=== PATIENT | female | born 1945 | race Caucasian/White ===

== ENCOUNTER → 2022-09-01 | Outpatient (CLI) | payer MEDICARE ==
--- NOTE | 2022-09-01 13:00 | CA ---
Exercise Stress Test Report Name: Lisset Gordon Exam Date: 09/01/2022 11:07 Exam Location: [facility] Ht (in): 60 Wt (lb): 125 BSA: 1.53 Ordering Phys: Benji Lynn MD Referring Phys: Benji Lynn MD Technologist: Mike Mena Age: 77 Gender: F : 1945 Procedure CPT: Indications: r06.02 ICD-10 Codes: Patient History: Medications: ATORVASTATIN Meds past 24 hrs: Pretest Chest Pain: STRESS TEST Maverick Protocol Exercise Duration (min:sec): 01:[address] Depressions (mm): Angina Score: Bella Score: Resting HR (bpm): 80 Peak HR (bpm): 144 Resting BP (mmHg): 147 / 78 Peak BP (mmHg): 193 / 86 MPHR: 141 Target HR: 120 % MPHR: 102 METS: 4.0 Total Dose: Peak Dose: Atropine: Double Product: 89568 BP Response: Stress Termination: DYSPNEA UNABLE TO CONTINUE,TARGET HR REACHED/MAX EXERTION Stress Symptoms: DIFFICULTY IN BREATHING Stress Summary: ECG ANALYSIS Resting ECG: Normal sinus rhythm normal axis normal intervals Stress ECG: Patient exercised on Maverick protocol for a total of 1 minute and 40 seconds achieving to metastases 100% of predicted maximal heart rate without chest pain or diagnostic ST segment depression CONCLUSIONS Extremely poor exercise tolerance No evidence of ST segment depression Inability to exercise for more than 2 minutes is a poor prognostic indicator Dr. Jared Chi MD (Electronically Signed) Final Date: 01 September 2022 12:59
== END | disposition home or self-care (01) ==
LOC: RADNMMAIN 10:30
PROVIDERS: ATTEND Family Medicine
DX: I10 Essential (primary) hypertension (principal); R06.02 Shortness of breath; R07.89 Other chest pain
CPT/HCPCS: 93017

== ENCOUNTER 2023-01-26 06:55 | Day surgery (SDC) | payer MEDICARE ==
[~2023-01-26 06:55] MED LIST: LACTATED RINGERS 1,000 ML IV SCH
[2023-01-26 07:28] VITALS: TEMP 96.9
[2023-01-26] MEDS ORDERED: LIDOCAINE 2% INJ 20 MG/ML (2 ML VIAL) ONE (08:16)
[2023-01-26] MEDS ORDERED: PROPOFOL 10 MG/ML 20 ML VIAL IV ONE (08:16)
--- NOTE | 2023-01-26 08:39 | P.OP ---
Date of Procedure: 01/26/23 Preoperative Diagnosis: GI bleed Postoperative Diagnosis: Internal hemorrhoids Procedure(s) Performed: Colonoscopy Anesthesia: MAC Surgeon: Edwin Carranza Pathology: none sent Condition: stable Disposition: PACU Description of Procedure: The patient's placed on the endoscopy table in the lateral position. She received IV sedation. Digital rectal exam was performed. This revealed internal hemorrhoids. The flexible colonoscope was then placed patient anus and passed throughout the entire colon. The ileocecal valve was visually is. The appendiceal orifice was seen. The flexible colonoscope was then withdrawn. The cecum appeared all. The ascending colon appeared normal. Transverse colon was normal. Descending colon was normal. Sigmoid colon appeared normal. Scope summer back the rectum and this appeared normal. Scope withdrawn through the anus and internal hemorrhoids are noted. There was no evidence of any active GI bleed. Presumed patient may have had bleeding from internal hemorrhoids.
--- NOTE | 2023-01-26 08:41 | P.GSHP ---
History of Present Illness H&P Date: 01/26/23 Chief Complaint: GI bleed Is a 77-year-old female who presents today for colonoscopy. Patient is evidence of GI bleed.. Her stool is fecal occult blood positive. Patient denies any active bleeding. Past Medical History Past Medical History: Hyperlipidemia History of Any Multi-Drug Resistant Organisms: None Reported Past Surgical History: Section, Cholecystectomy, Tonsillectomy Past Anesthesia/Blood Transfusion Reactions: No Reported Reaction Additional Past Anesthesia/Blood Transfusion Reaction / Comment(s): slow to wake up Smoking Status: Never smoker Medications and Allergies Home Medications Medication Instructions Recorded Confirmed Type Atorvastatin Calcium 40 mg PO DAILY 01/24/23 01/24/23 History Ergocalciferol [Vitamin D2 (1250 50,000 unit PO Q30D 01/24/23 01/24/23 History Mcg = 41906 Iu)] Allergies Allergy/AdvReac Type Severity Reaction Status Date / Time No Known Allergies Allergy Verified 01/24/23 11:25 Surgical - Exam Vital Signs Temp Pulse Resp BP Pulse Ox 96.9 F L 70 18 199/83 98 01/26/23 07:23 01/26/23 07:23 01/26/23 07:23 01/26/23 07:23 01/26/23 07:23 - General well developed, well nourished, no distress - Eyes PERRL - ENT normal pinna - Neck no masses - Respiratory normal expansion - Cardiovascular Rhythm: regular - Abdomen Abdomen: soft, non tender Assessment and Plan Assessment: History of GI bleed. We'll perform colonoscopy.
[2023-01-26 08:57] VITALS: BP 125/71; PULSE 58; RESP 16
== END 2023-01-26 09:53 | disposition home or self-care (01) ==
LOC: ORWHC2ENDO 06:55
PROVIDERS: ATTEND Surgery
DX: K64.8 Other hemorrhoids (principal); E78.5 Hyperlipidemia, unspecified; Z90.49 Acquired absence of other specified parts of digestive tract; Z79.899 Other long term (current) drug therapy
CPT/HCPCS: 45378; J2704; J2001

== ENCOUNTER → 2023-09-13 | Outpatient (CLI) | payer MEDICARE ==
[2023-09-13 15:43] LABS: African American GFR (CKD) 71 (>60 ml/min/1.73 sqM); Blood Urea Nitrogen 15 mg/dL (7-17); Non-African American GFR(CKD) 61 (>60 ml/min/1.73 sqM)
--- NOTE | 2023-09-21 00:35 | CT ---
EXAMINATION TYPE: CT angio chest CT DLP: 137.3 mGycm, Automated exposure control for dose reduction was used. DATE OF EXAM: 09/13/2023 4:03 PM COMPARISON: None. CLINICAL INDICATION:Female, 78 years old with history of R79.89 Elevated D-Dimer; SOB x 1 year, recen t high dimer value. TECHNIQUE/CONTRAST: CTA scan of the thorax is performed with IV Contrast, patient injected with 80 cc mL of Isovue 370, M IP images are created and reviewed these are created on a separate workstation.. FINDINGS: There is adequate contrast bolus and timing. PULMONARY ARTERIES: There is no evidence for a filling defect within the pulmonary vasculature to sug gest acute pulmonary embolism. Pulmonary trunk is normal in size. Trunk measures 2.3 CM. LOWER NECK: No significant findings. MEDIASTINUM: No gross evidence of adenopathy. HEART: Mild cardiomegaly. Mild coronary artery calcification. No appreciable pericardial effusion. AORTA: Atherosclerotic calcifications are present throughout the aorta and branches. Mild in degree. No aortic aneurysm. The ascending aorta is 3.3 cm, descending 2.3 cm. SOFT TISSUES/LYMPH NODES: Unremarkable soft tissues. No axillary adenopathy. LUNGS/ PLEURA: There is scarring throughout both lungs, including biapical, plus peripheral subpleura l fibrosis which is greatest at the lung bases. There is suggestion of some honeycombing towards the lung bases. No sizable nodule, mass, or consolidation is seen superimposed on this background. No ple ural effusion or pneumothorax. AIRWAY: Central airways are patent. MUSCULOSKELETAL: Bones are generally osteopenic. No acute osseous abnormality. Moderate disc degenera tion changes are present throughout the included thoracolumbar spine. There is a rather prominent pec tus excavatum deformity with posterior tilting on the left of about 4 mm versus the right. This defor mity appears to partially compress the right heart. UPPER ABDOMEN: Partially seen cholecystectomy clips. Additional aortic calcification. IMPRESSION: 1. No evidence of pulmonary embolism. 2. No other acute chest process demonstrated. 3. Other chronic and likely incidental findings, as described above.
== END | disposition home or self-care (01) ==
LOC: RADCTMAIN 14:36
PROVIDERS: ATTEND Family Medicine
DX: R79.89 Other specified abnormal findings of blood chemistry (principal); R06.02 Shortness of breath
CPT/HCPCS: 82565; 84520; 71275; 36415; Q9967

== ENCOUNTER → 2023-10-03 | Outpatient (CLI) | payer MEDICARE ==
[2023-10-03 12:43] LABS: African American GFR (CKD) >90 (>60 ml/min/1.73 sqM); Blood Urea Nitrogen 14 mg/dL (7-17); Non-African American GFR(CKD) 84 (>60 ml/min/1.73 sqM)
--- NOTE | 2023-10-03 15:56 | CT ---
EXAMINATION TYPE: CT abdomen pelvis w con DATE OF EXAM: 10/03/2023 COMPARISON: NONE HISTORY: 78-year-old female R10.9, generalized abdominal and pelvic pain TECHNIQUE: Contiguous axial scanning of the abdomen and pelvis following administration of 100 ml Iso kinsey 300 IV contrast. Delayed images through the kidneys and coronal/sagittal reconstructions perform ed. CT DLP: 359.2 mGycm Automated exposure control for dose reduction was used. FINDINGS: Pectus excavatum deformity with mass effect on the heart. Possible UIP pattern of lung inju ry at the lung bases with honeycombing. Pulmonary medicine referral if no established diagnosis. No focal liver lesion. Bile duct mildly dilated up to 7 mm with normal distal tapering. Additional mild prominence of the ma in pancreatic duct up to 3 mm. Portal venous system is patent. Cholecystectomy clips. Adrenal glands, kidneys, spleen, and pancreas otherwise show no gross abnormal. Moderate atherosclerotic calcifications infrarenal abdominal aorta. No dilated small bowel, free fluid, or free air. No mesenteric or retroperitoneal lymphadenopathy. Oral contrast progressed to the proximal sigmoid colon. There is mild stool in the distal colon. No p ericolic inflammatory change. Mild circumferential bladder wall thickening. Small foci of intraluminal bladder air are noted. Uterus anteverted. Prominent parauterine varices especially on the left with distention of the left g onadal vein. Right-sided pelvic phlebolith. No abnormal fluid collection in the pelvis or pelvic lymp hadenopathy. Bones: Mild degenerative change at the hips. Facet arthropathy mid to lower lumbar spine with grade 1 anterolisthesis L3-L4 and L4-L5. IMPRESSION: 1. SMALL FOCI OF AIR WITHIN THE BLADDER LUMEN. MILD CIRCUMFERENTIAL BLADDER WALL THICKENING. CORRELAT E FOR ANY RECENT INSTRUMENTATION OR UNDERLYING INFECTION. 2. PROMINENT LEFT PERIUTERINE VARICES are nonspecific but can be seen in the setting of pelvic conges tion syndrome. 3. Possible UIP pattern of lung injury at the lung bases. If no established diagnosis, recommend pulm onary medicine referral.
== END | disposition home or self-care (01) ==
LOC: RADCTMAIN 11:54
PROVIDERS: ATTEND Family Medicine
DX: N32.89 Other specified disorders of bladder (principal); I86.2 Pelvic varices
CPT/HCPCS: 82565; 84520; 74177; 36415; Q9967

== ENCOUNTER → 2023-10-30 | Outpatient (CLI) | payer MEDICARE ==
--- NOTE | 2023-11-03 07:26 | CT ---
EXAMINATION TYPE: CT chest wo con DATE OF EXAM: 10/30/2023 COMPARISON: 09/13/2023 HISTORY: Interstital pulmonary disease CT DLP: 317.9 mGycm Automated exposure control for dose reduction was used. Contrast: None Technique: Axial images 1 mm thick sections. Reconstructed images in the coronal plane FINDINGS: There is a 1.0 cm nodular density with irregular margins in the lateral left mid lung. This was prese nt previously and is stable. Peripheral pulmonary fibrosis is evident, greater on the left. Some mild pleural thickening is presen t in scattered areas. Findings are stable over the interval. No suspicious consolidations. The ascending thoracic aorta at the main pulmonary artery is 5 cm. Main pulmonary artery the bifurcation is 2.4 cm. Coronary artery calcification is present. No suspicious enlarged lymphadenopathy is evident. Portion of the thyroid visualized is normal. Upper abdomen is un remarkable. There is been a prior cholecystectomy. IMPRESSION: 1. STABLE APPEARING PULMONARY FIBROSIS
== END | disposition home or self-care (01) ==
LOC: RADCTMAIN 15:38
PROVIDERS: ATTEND Internal Medicine Critical Care Medicine
DX: J84.10 Pulmonary fibrosis, unspecified (principal); J84.9 Interstitial pulmonary disease, unspecified
CPT/HCPCS: 71250

== ENCOUNTER → 2023-12-20 | Outpatient (CLI) | payer MEDICARE ==
--- NOTE | 2023-12-20 21:30 | FL ---
EXAMINATION TYPE: FL barium swallow DATE OF EXAM: 12/20/2023 COMPARISON: NONE HISTORY: Dysphagia dry mouth sore throat TECHNIQUE: Double air contrast FINDINGS: Number of images: 197 No intraluminal or extramural defects are evident. There is some mild presbyesophagus with tertiary c ontractions distal esophagus. No aspiration was evident. No reflux was evident. The horizontal drinki ng position there is incomplete stripping of the esophageal bolus. IMPRESSION: 1. Mild Presbyesophagus. 2. Incomplete stripping of esophageal bolus in the horizontal drinking position
== END | disposition home or self-care (01) ==
LOC: RADUSWWP 08:54
PROVIDERS: ATTEND Otolaryngology
DX: K22.89 Other specified disease of esophagus (principal)
CPT/HCPCS: 74220

== ENCOUNTER 2024-11-14 12:30 | Inpatient (IN) | payer MEDICARE ==
[2024-11-14] MEDS: IPRATROPIUM-ALBUTEROL 3 ML NEB INHALATION STA (13:28)
[2024-11-14 13:37] LABS: Basophils % (A) 0 %; Eosinophils # (A) 0.1 k/uL (0-0.7); Eosinophils % (A) 1 %; HGB 14.2 gm/dL (11.4-16.0); Lymphocytes % (A) 15 %; MCH 30.1 pg (25.0-35.0); MCHC 32.2 g/dL (31.0-37.0); MCV 93.4 fL (80.0-100.0); Mean Platelet Volume 7.7; Monocytes # (A) 0.3 k/uL (0-1.0); Monocytes % (A) 5 %; Neutrophils # (A) 5.3 k/uL (1.3-7.7); Neutrophils % (A) 77 %; Platelet Count 283 k/uL (150-450); RBC 4.72 m/uL (3.80-5.40); RDW 13.3 % (11.5-15.5); WBC 6.9 k/uL (3.8-10.6)
--- NOTE | 2024-11-14 13:42 | XR ---
EXAMINATION TYPE: XR chest 2V DATE OF EXAM: 11/14/2024 1:35 PM COMPARISON: CT 10/29/2024 CLINICAL INDICATION: Female, 79 years old with history of difficulty breathing, TECHNIQUE: XR chest 2V view(s) obtained. FINDINGS: The heart size is normal. The pulmonary vasculature is normal. Left lung increased diffuse infiltrates. This correlates with the patient's reported pulmonary fibros is from high-resolution CT chest 10/29/2024. Correlate for atypical pneumonia. Consider pulmonary kwabena a. IMPRESSION: 1. Diffuse increased lung markings left lung can be compatible with patient's known pulmonary fibrosi s.. Correlate for atypical pneumonia or pulmonary edema. [facility], , 11/14/2024 1:40 PM
[2024-11-14 14:07] LABS: Partial Thromboplastin Time 22.9 sec (22.0-30.0); Prothrombin Time 10.7 sec (10.0-12.5)
[2024-11-14 14:11] LABS: ALT 15 U/L (4-34); AST 29 U/L (14-36); African American GFR (CKD) >90 (>60 ml/min/1.73 sqM); Albumin 4.3 g/dL (3.5-5.0); Alkaline Phosphatase 87 U/L (38-126); Anion Gap 11 mmol/L; Blood Urea Nitrogen 10 mg/dL (7-17); Calcium 9.3 mg/dL (8.4-10.2); Carbon Dioxide 21 mmol/L (22-30); Chloride 103 mmol/L (98-107); Glucose 108 mg/dL (74-99); Non-African American GFR(CKD) 84 (>60 ml/min/1.73 sqM); Potassium 4.3 mmol/L (3.5-5.1); Sodium 135 mmol/L (137-145); Total Protein 7.7 g/dL (6.3-8.2)
[2024-11-14 14:16] LABS: Influenza A Not Detected (Not Detectd); Influenza B Not Detected (Not Detectd); RSV Not Detected (Not Detectd)
[2024-11-14 14:18] LABS: NT-Pro-B-Type Natriuretic Pept 703 pg/mL
[2024-11-14] MEDS ORDERED: NALOXONE 0.4 MG/ML 1 ML VIAL IV PRN (14:46)
--- NOTE | 2024-11-14 14:46 | ED ---
SOB HPI - General Chief Complaint: Shortness of Breath Stated Complaint: SOB Time Seen by Provider: 11/14/24 12:35 Source: patient, EMS Mode of arrival: EMS Limitations: no limitations - History of Present Illness Initial Comments: 79-year-old female with past medical history of pulmonary fibrosis who presents emergency department reporting shortness of breath. Patient states that for the past week she has had worsening exertional shortness of breath. She does have a history of pulmonary fibrosis. Recently saw Dr. Coe and had a CT of her chest performed. She is to take DuoNeb breathing treatments however she was told to stop these as they do not help her. She does not take any steroids. Denies having any fevers, chills or cough. No chest pain. No history of DVT or PE. No nausea or vomiting. EMS did start an IV and gave her 700 cc of normal saline. No history of heart failure. No other alleviating, precipitating or modifying factors - Related Data Home Medications Medication Instructions Recorded Confirmed Atorvastatin Calcium 40 mg PO HS 01/24/23 11/14/24 Multivitamins, Thera [Multivitamin 1 tab PO DAILY 11/14/24 11/14/24 (formulary)] Allergies Allergy/AdvReac Type Severity Reaction Status Date / Time No Known Allergies Allergy Verified 11/14/24 15:23 Review of Systems ROS Statement: Those systems with pertinent positive or pertinent negative responses have been documented in the HPI. ROS Other: All systems not noted in ROS Statement are negative. Past Medical History Past Medical History: Hyperlipidemia Additional Past Medical History / Comment(s): pulmonary fibrosis History of Any Multi-Drug Resistant Organisms: None Reported Past Surgical History: Section, Cholecystectomy, Tonsillectomy Past Anesthesia/Blood Transfusion Reactions: No Reported Reaction Additional Past Anesthesia/Blood Transfusion Reaction / Comment(s): slow to wake up Past Psychological History: No Psychological Hx Reported Smoking Status: Never smoker Past Alcohol Use History: None Reported Past Drug Use History: None Reported General Exam Limitations: no limitations General appearance: alert, in no apparent distress Head exam: Present: atraumatic, normocephalic, normal inspection Eye exam: Present: normal appearance, PERRL, EOMI. Absent: scleral icterus, conjunctival injection, periorbital swelling ENT exam: Present: normal exam, mucous membranes moist Neck exam: Present: normal inspection. Absent: tenderness, meningismus, lymphadenopathy Respiratory exam: Present: wheezes, decreased breath sounds, other (Tachypnea). Absent: respiratory distress, rales, rhonchi, stridor Cardiovascular Exam: Present: regular rate, normal rhythm, normal heart sounds. Absent: systolic murmur, diastolic murmur, rubs, gallop, clicks GI/Abdominal exam: Present: soft, normal bowel sounds. Absent: distended, tenderness, guarding, rebound, rigid Extremities exam: Present: normal inspection, full ROM, normal capillary refill. Absent: tenderness, pedal edema, joint swelling, calf tenderness Back exam: Present: normal inspection Neurological exam: Present: alert, oriented X3, CN II-XII intact Psychiatric exam: Present: normal affect, normal mood Skin exam: Present: warm, dry, intact, normal color. Absent: rash Course Vital Signs 11/14/24 11/14/24 11/14/24 12:34 13:31 13:44 Temperature 97.8 F Pulse Rate 74 90 89 Respiratory 34 H Rate Blood Pressure 168/87 O2 Sat by Pulse 100 Oximetry 11/14/24 11/14/24 11/14/24 15:04 15:49 15:58 Temperature Pulse Rate 74 96 96 Respiratory 20 Rate Blood Pressure 161/81 O2 Sat by Pulse 99 Oximetry 11/14/24 11/14/24 11/14/24 17:42 20:03 20:17 Temperature 98.4 F Pulse Rate 88 96 98 Respiratory 26 H Rate Blood Pressure 155/69 O2 Sat by Pulse 100 Oximetry 11/14/24 11/14/24 11/14/24 21:39 21:44 22:00 Temperature 98.6 F Pulse Rate 101 H 91 Respiratory 22 20 Rate Blood Pressure 180/81 155/69 O2 Sat by Pulse 99 99 Oximetry 11/15/24 11/15/24 11/15/24 00:00 05:00 06:40 Temperature Pulse Rate 86 91 79 Respiratory 20 20 20 Rate Blood Pressure 134/64 172/84 178/80 O2 Sat by Pulse 99 100 100 Oximetry 11/15/24 11/15/24 11/15/24 07:30 09:07 09:17 Temperature 97.7 F Pulse Rate 87 92 90 Respiratory 20 Rate Blood Pressure 164/78 O2 Sat by Pulse 99 Oximetry 11/15/24 11/15/24 11/15/24 09:35 10:43 12:05 Temperature Pulse Rate 94 100 96 Respiratory 18 18 Rate Blood Pressure 171/79 O2 Sat by Pulse 100 100 Oximetry 11/15/24 11/15/24 11/15/24 12:14 13:00 15:00 Temperature Pulse Rate 92 101 H 100 Respiratory 18 18 Rate Blood Pressure 161/74 162/81 O2 Sat by Pulse 100 99 Oximetry Medical Decision Making - Medical Decision Making Was pt. sent in by a medical professional or institution (, PA, DISTRIBUTION CENTER ASSISTANT, urgent care, hospital, or assisted...) When possible be specific @ -No Did you speak to anyone other than the patient for history (EMS, parent, family, police, friend...)? What history was obtained from this source @ -Spoke with the patient's friend for history Did you review nursing and triage notes (agree or disagree)? Why? @ -I reviewed and agree with nursing and triage notes Were old charts reviewed (outside hosp., previous admission, EMS record, old EKG, old radiological studies, urgent care reports/EKG's, assisted records)? Report findings @ -No old charts were reviewed Differential Diagnosis (chest pain, altered mental status, abdominal pain women, abdominal pain men, vaginal bleeding, weakness, fever, dyspnea, syncope, headache, dizziness, GI bleed, back pain, seizure, CVA, palpatations, mental health, musculoskeletal)? @ -Differential Dyspnea: Coronary syndrome, arrhythmia, tamponade, asthma, COPD, pulmonary embolism, pneumonia, pneumothorax, pulmonary effusion, anaphylaxis, diabetic ketoacidosis, flailed chest, pulmonary contusion, diaphragmatic rupture, anemia, neuromuscular, this is not meant to be an all-inclusive list. EKG interpreted by me (3pts min.). @ -Yes and demonstrates sinus rhythm with a rate of 79. Parable 130. QRS 74. QTc of 445. No acute ST segment elevations. Inverted T wave in V2 X-rays interpreted by me (1pt min.). @ -Yes which demonstrates chronic pulmonary fibrosis changes CT interpreted by me (1pt min.). @ -None done U/S interpreted by me (1pt. min.). @ -None done What testing was considered but not performed or refused? (CT, X-rays, U/S, labs )? Why? @ -None What meds were considered but not given or refused? Why? @ -None Did you discuss the management of the patient with other professionals (professionals i.e. DrOsorio, PA, DISTRIBUTION CENTER ASSISTANT, lab, RT, psych nurse, social work coordinator, cardroom supervisor, teacher, founder and chief technical officer, assistant case manager)? Give summary @ -Spoke with Dr. Ellis for the admission Was smoking cessation discussed for >3mins.? @ -No Was critical care preformed (if so, how long)? @ -No Were there social determinants of health that impacted care today? How? (Homelessness, low income, unemployed, alcoholism, drug addiction, transportation, low edu. Level, literacy, decrease access to med. care, custodial, rehab)? @ -No Was there de-escalation of care discussed even if they declined (Discuss DNR or withdrawal of care, Hospice)? DNR status @ -No What co-morbidities impacted this encounter? (DM, HTN, Smoking, COPD, CAD, Cancer, CVA, ARF, Chemo, Hep., AIDS, mental health diagnosis, sleep apnea, morbid obesity)? @ -Pulmonary fibrosis Was patient admitted / discharged? Hospital course, mention meds given and route, prescriptions, significant lab abnormalities, going to OR and other pertinent info. @ -Upon arrival patient seen and evaluated in [place] [id number]. Thorough history and physical exam was performed. Patient is placed on supplemental oxygen. She is provided with a breathing treatment and 125 of Solu-Medrol. Laboratory studies are conducted. Chest x-ray was performed. Discussed results with Dr. Lynn. She will be empirically covered with a dose of antibiotics. Recommended admission due to her increased work of breathing. Dr. Lynn did accept the admission Undiagnosed new problem with uncertain prognosis? @ -No Drug Therapy requiring intensive monitoring for toxicity (Heparin, Nitro, Insulin, Cardizem)? @ -No Were any procedures done? @ -No Diagnosis/symptom? @ -Acute respiratory insufficiency, chronic respiratory failure, history of pulmonary fibrosis Acute, or Chronic, or Acute on Chronic? @ -Acute on chronic Uncomplicated (without systemic symptoms) or Complicated (systemic symptoms)? @ -Complicated Side effects of treatment? @ -No Exacerbation, Progression, or Severe Exacerbation? @ -Yes Poses a threat to life or bodily function? How? (Chest pain, USA, NC, pneumonia, PE, COPD, DKA, ARF, appy, cholecystitis, CVA, Diverticulitis, Homicidal, Suicidal, threat to staff... and all critical care pts) @ -No - Lab Data Result diagrams: 11/15/24 06:35 11/15/24 06:35 Lab Results 11/14/24 11/14/24 11/14/24 Range/Units 13:25 13:25 13:25 WBC 6.9 (3.8-10.6) k/uL RBC 4.72 (3.80-5.40) m/uL Hgb 14.2 (11.4-16.0) gm/dL Hct 44.0 (34.0-46.0) % MCV 93.4 (80.0-100.0) fL MCH 30.1 (25.0-35.0) pg MCHC 32.2 (31.0-37.0) g/dL RDW 13.3 (11.5-15.5) % Plt Count 283 (150-450) k/uL MPV 7.7 Neutrophils % 77 % Lymphocytes % 15 % Monocytes % 5 % Eosinophils % 1 % Basophils % 0 % Neutrophils # 5.3 (1.3-7.7) k/uL Lymphocytes # 1.0 (1.0-4.8) k/uL Monocytes # 0.3 (0-1.0) k/uL Eosinophils # 0.1 (0-0.7) k/uL Basophils # 0.0 (0-0.2) k/uL PT 10.7 (10.0-12.5) sec INR 1.0 (<1.2) APTT 22.9 (22.0-30.0) sec Sodium 135 L (137-145) mmol/L Potassium 4.3 (3.5-5.1) mmol/L Chloride 103 (98-107) mmol/L Carbon Dioxide 21 L (22-30) mmol/L Anion Gap 11 mmol/L BUN 10 (7-17) mg/dL Creatinine 0.63 (0.52-1.04) mg/dL Est GFR (CKD-EPI)AfAm >90 (>60 ml/min/1.73 sqM) Est GFR (CKD-EPI)NonAf 84 (>60 ml/min/1.73 sqM) Glucose 108 H (74-99) mg/dL Plasma Lactic Acid Praveen (0.7-2.0) mmol/L Calcium 9.3 (8.4-10.2) mg/dL Total Bilirubin 1.0 (0.2-1.3) mg/dL AST 29 (14-36) U/L ALT 15 (4-34) U/L Alkaline Phosphatase 87 (38-126) U/L Troponin I (0.000-0.034) ng/mL NT-Pro-B Natriuret Pep 703 pg/mL Total Protein 7.7 (6.3-8.2) g/dL Albumin 4.3 (3.5-5.0) g/dL Influenza Type A (PCR) (Not Detectd) Influenza Type B (PCR) (Not Detectd) RSV (PCR) (Not Detectd) SARS-CoV-2 (PCR) (Not Detectd) 11/14/24 11/14/24 11/14/24 Range/Units 13:25 13:25 13:25 WBC (3.8-10.6) k/uL RBC (3.80-5.40) m/uL Hgb (11.4-16.0) gm/dL Hct (34.0-46.0) % MCV (80.0-100.0) fL MCH (25.0-35.0) pg MCHC (31.0-37.0) g/dL RDW (11.5-15.5) % Plt Count (150-450) k/uL MPV Neutrophils % % Lymphocytes % % Monocytes % % Eosinophils % % Basophils % % Neutrophils # (1.3-7.7) k/uL Lymphocytes # (1.0-4.8) k/uL Monocytes # (0-1.0) k/uL Eosinophils # (0-0.7) k/uL Basophils # (0-0.2) k/uL PT (10.0-12.5) sec INR (<1.2) APTT (22.0-30.0) sec Sodium (137-145) mmol/L Potassium (3.5-5.1) mmol/L Chloride (98-107) mmol/L Carbon Dioxide (22-30) mmol/L Anion Gap mmol/L BUN (7-17) mg/dL Creatinine (0.52-1.04) mg/dL Est GFR (CKD-EPI)AfAm (>60 ml/min/1.73 sqM) Est GFR (CKD-EPI)NonAf (>60 ml/min/1.73 sqM) Glucose (74-99) mg/dL Plasma Lactic Acid Praveen 1.9 (0.7-2.0) mmol/L Calcium (8.4-10.2) mg/dL Total Bilirubin (0.2-1.3) mg/dL AST (14-36) U/L ALT (4-34) U/L Alkaline Phosphatase (38-126) U/L Troponin I <0.012 (0.000-0.034) ng/mL NT-Pro-B Natriuret Pep pg/mL Total Protein (6.3-8.2) g/dL Albumin (3.5-5.0) g/dL Influenza Type A (PCR) Not Detected (Not Detectd) Influenza Type B (PCR) Not Detected (Not Detectd) RSV (PCR) Not Detected (Not Detectd) SARS-CoV-2 (PCR) Not Detected (Not Detectd) Disposition Clinical Impression: Acute respiratory insufficiency, Pulmonary fibrosis Disposition: ADMITTED IP TO THIS HOSP Condition: Stable Is patient prescribed a controlled substance at d/c from ED?: No Time of Disposition: 14:45 Decision to Admit Reason: Admit from EC Decision Date: 11/14/24 Decision Time: 14:45
[2024-11-14] MEDS: methylPREDNISolone SOD SUCCI 125 MG/2 ML VIAL IV STA (15:26)
[2024-11-14] MEDS ORDERED: PNEUMONIA PROTOCOL UTILIZED 1 EACH MISC PO PRN (15:31)
[2024-11-14] MEDS: IPRATROPIUM-ALBUTEROL 3 ML NEB INHALATION SCH (15:49)
[2024-11-14] MEDS: AZITHROMYCIN 500 MG in SODIUM CHLORIDE 0.9% 250 ML IVPB STA (17:21)
[2024-11-15] MEDS: methylPREDNISolone SOD SUCCI 40 MG/ML 1 ML VIAL IV SCH ×2 (00:47→12:58)
[2024-11-15] MEDS: AZITHROMYCIN 500 MG TAB PO SCH (08:06)
[2024-11-15] MEDS: IPRATROPIUM-ALBUTEROL 3 ML NEB INHALATION SCH (09:07)
[2024-11-15 10:26] LABS: BUN/Creat Ratio 18.33 Ratio (12.00-20.00); Calcium 9.6 mg/dL (8.7-10.3); Carbon Dioxide 22.1 mmol/L (21.6-31.8); Chloride 102 mmol/L (96-109); Glucose 153 mg/dL (70-110); Potassium 4.3 mmol/L (3.5-5.5); Sodium 138 mmol/L (135-145)
[2024-11-15 10:35] LABS: Basophils # (A) 0.01 X 10*3/uL (0.00-0.10); Basophils % (A) 0.1 %; Eosinophils # (A) 0 X 10*3/uL (0.04-0.35); Eosinophils % (A) 0 %; HCT 41.5 % (37.2-46.3); HGB 13.5 g/dL (12.0-15.0); Lymphocytes # (A) 0.53 X 10*3/uL (0.90-5.00); MCH 30.1 pg (27.0-32.0); MCHC 32.5 g/dL (32.0-37.0); MCV 92.6 FL (80.0-97.0); Mean Platelet Volume 10.4 FL (9.5-12.2); Monocytes # (A) 0.13 X 10*3/uL (0.20-1.00); Monocytes % (A) 1.5 %; NRBC Per 100 WBC 0 X 10*3/uL (0.00-0.01); Neutrophils # (A) 8.15 X 10*3/uL (1.80-7.70); Neutrophils % (A) 92.1 %; Platelet Count 268 X 10*3/uL (140-440); RBC 4.48 X 10*6/uL (4.10-5.20); RDW 13.3 % (11.5-14.5); WBC 8.85 X 10*3/uL (4.50-10.00)
--- NOTE | 2024-11-15 14:15 | P.CNPUL ---
History of Present Illness Consult date: 11/15/24 Requesting physician: Benji Lynn Reason for consult: dyspnea, cough, pulmonary fibrosis Chief complaint: Shortness of breath, cough, congestion History of present illness: This is a pleasant 79-year-old female patient with a known history of pulmonary fibrosis for approximately 1 year. She follows with Dr. Coe in our office. She is a lifelong non-smoker. She is not on home oxygen. She had presented here to the emergency room with a 3-day history of increasing shortness of salma ath, cough and congestion. She has had symptoms for several months but had progressively become worse and she is even short of breath at rest. Dust x-ray shows diffuse increased lung markings in the left lung. Cannot rule out underlying atypical pneumonia or pulmonary edema. White count 8.8. Hemoglobin 13.5. Platelets 268. Sodium 138. Potassium 4.3. Bicarb 22. BUN 11. Creatinine 0.6. Glucose 153. Procalcitonin is negative at 0.05. Viral screen is negative. proBNP 703. She is seen today in consultation in the emergency department. She is currently sitting up on a stretcher. Awake and alert in no acute distress. She is maintaining good O2 saturations up to 100% on 2 L/min pe r nasal cannula. She is afebrile. Hemodynamically stable. She is dyspneic with conversation. Dyspneic with minimal exertion. Review of Systems REVIEW OF SYSTEMS: CONSTITUTIONAL: Denies any recent significant weight loss or weight gain. EYES: Denies change in vision. EARS, NOSE, MOUTH, THROAT: Denies headaches, denies sore throat. CARDIOVASCULAR: Denies chest pain, palpitations or syncopal episodes. RESPIRATORY: Positive for shortness of breath, cough, congestion no hemoptysis. GASTROINTESTINAL: Denies change in appetite, denies abdominal pain GENITOURINARY: Denies hematuria, denies infections. MUSKULOSKELETAL: Denies pain, denies swelling. INTEGUMENTARY: Denies rash, denies eczema. NEUROLOGICAL: Denies recent memory loss, no recent seizure activity. PSYCHIATRIC: Denies anxiety, denies depression. HEMATOLOGIC/LYMPHATIC: Denies anemia, denies enlarged lymph nodes. Past Medical History Past Medical History: Hyperlipidemia Additional Past Medical History / Comment(s): pulmonary fibrosis History of Any Multi-Drug Resistant Organisms: None Reported Past Surgical History: Section, Cholecystectomy, Tonsillectomy Past Anesthesia/Blood Transfusion Reactions: No Reported Reaction Additional Past Anesthesia/Blood Transfusion Reaction / Comment(s): slow to wake up Past Psychological History: No Psychological Hx Reported Smoking Status: Never smoker Past Alcohol Use History: None Reported Past Drug Use History: None Reported Medications and Allergies Home Medications Medication Instructions Recorded Confirmed Type Atorvastatin Calcium 40 mg PO HS 01/24/23 11/14/24 History Multivitamins, Thera [Multivitamin 1 tab PO DAILY 11/14/24 11/14/24 History (formulary)] Allergies Allergy/AdvReac Type Severity Reaction Status Date / Time No Known Allergies Allergy Verified 11/14/24 15:23 Physical Exam Vitals: Vital Signs Temp Pulse Resp BP Pulse Ox 11/15/24 13:00 101 H 18 161/74 100 11/15/24 12:14 92 11/15/24 12:05 96 11/15/24 10:43 100 18 171/79 100 11/15/24 09:35 94 18 100 11/15/24 09:17 90 11/15/24 09:07 92 11/15/24 07:30 97.7 F 87 20 164/78 99 11/15/24 06:40 79 20 178/80 100 11/15/24 05:00 91 20 172/84 100 11/15/24 00:00 86 20 134/64 99 11/14/24 22:00 91 20 155/69 99 11/14/24 21:44 98.6 F 11/14/24 21:39 101 H 22 180/81 99 11/14/24 20:17 98 11/14/24 20:03 96 11/14/24 17:42 98.4 F 88 26 H 155/69 100 11/14/24 15:58 96 11/14/24 15:49 96 11/14/24 15:04 74 20 161/81 99 GENERAL EXAM: Alert, very pleasant 79-year-old female, on 2 L nasal cannula, fairly comfortable in no apparent distress. HEAD: Normocephalic. EYES: Normal reaction of pupils, equal size. NOSE: Clear with pink turbinates. THROAT: No erythema or exudates. NECK: No masses, no JVD. CHEST: No chest wall deformity. LUNGS: Equal air entry with coarse crackles in the bilateral bases. CVS: S1 and S2 normal with no audible murmur, regular rhythm. ABDOMEN: No hepatosplenomegaly, normal bowel sounds, no guarding or rigidity. SPINE: No scoliosis or deformity SKIN: No rashes CENTRAL NERVOUS SYSTEM: No focal deficits, tone is normal in all 4 extremities. EXTREMITIES: There is no peripheral edema. Positive clubbing. Peripheral pulses are intact. Results - Laboratory Findings CBC and BMP: 11/15/24 06:35 11/15/24 06:35 PT/INR, D-dimer PT 10.7 sec (10.0-12.5) 11/14/24 13:25 INR 1.0 (<1.2) 11/14/24 13:25 Abnormal lab findings: Abnormal Labs 11/14/24 11/15/24 11/15/24 13:25 06:35 06:35 Neutrophils # 8.15 H Lymphocytes # 0.53 L Monocytes # 0.13 L Eosinophils # 0 L Sodium 135 L Carbon Dioxide 21 L Anion Gap 13.90 H Glucose 108 H 153 H - Diagnostic Findings Chest x-ray: image reviewed Assessment and Plan Assessment: Acute hypoxemic respiratory failure secondary to possible worsening pulmonary fibrosis versus atypical pneumonia. Procalcitonin 0.05. Viral screen negative History of pulmonary fibrosis for approximately 1 year. Not on treatment in the outpatient setting Lifelong non-smoker Hyperlipidemia Plan: The patient was seen and evaluated Chest x-ray, labs and medications reviewed Continue antibiotics for now Add Solu-Medrol 60 mg every 6 hours Continue DuoNeb inhalations Add Lovenox for DVT prophylaxis Pepcid for GI prophylaxis Resume home medications Titrate the FiO2 as tolerated We will continue to follow and make further recommendations based on her clinical status I have personally seen and examined the patient, performed the documentation and the assessment and plan as written. Number of minutes spent on the visit: 20 Dictation was produced using [employer] software. Please excuse any grammatical, word or spelling errors.
[2024-11-15] MEDS: LOSARTAN 25 MG TAB PO SCH (20:10)
[2024-11-15] MEDS: ATORVASTATIN 40 MG TAB PO SCH (20:10)
--- NOTE | 2024-11-15 21:21 | HP ---
HISTORY AND PHYSICAL CHIEF COMPLAINT: Difficulty breathing. HISTORY OF PRESENT ILLNESS: This is another admission for this 79-year-old female with pulmonary fibrosis, which has been progressive. She is a reliable patient. She lives alone. She came to the emergency room because she was having difficulty with breathing and she was admitted for respiratory failure. All of her viral studies were negative. BNP was slightly elevated at 703. REVIEW OF SYSTEMS: She has had no chest pain, hemoptysis, fever, chills, etc. Past medical history, family history, personal and social histories are otherwise unremarkable and noncontributory. She is not allergic to any medication She is only taking a pantoprazole and atorvastatin. She has never smoked. PHYSICAL EXAMINATION: VITAL SIGNS: Normal. Her blood pressure is slightly elevated at 178/79. GENERAL: She appeared to be slightly short of breath. HEAD, EARS, EYES, NOSE, MOUTH, AND THROAT: Normal. CHEST: Demonstrated poor breath sounds with scattered crackling rales. CARDIAC: Normal. ABDOMEN: Soft, nontender. EXTREMITIES: Normal. IMPRESSION: 1. Acute respiratory failure. 2. Pulmonary fibrosis. PLAN: 1. Bed rest. 2. IV fluids. 3. Updrafts. 4. Consult Pulmonology. MMODL / IJN: [id number] /
[2024-11-16] MEDS: ENOXAPARIN 40 MG/0.4 ML SYRINGE SQ SCH (09:56)
[2024-11-16] MEDS: FAMOTIDINE 20 MG TAB PO SCH (09:56)
[2024-11-16 11:33] VITALS: BMI 23.2
[2024-11-16] MEDS: IOPAMIDOL CONTRAST (ORAL USE) VIAL PO PRN (11:44)
--- NOTE | 2024-11-16 12:34 | CT ---
EXAMINATION TYPE: CT abdomen w con CT DLP: 362.9 mGycm, Automated exposure control for dose reduction was used. DATE OF EXAM: 11/16/2024 12:27 PM COMPARISON: CT abdomen pelvis 10/03/2023, CT chest 10/29/2024. CLINICAL INDICATION:Female, 79 years old with history of LUQ pain; LUQ PAIN TECHNIQUE: Standard CT of the abdomen following the administration of 100 cc of Isovue 300 IV contr ast material and oral contrast. Coronal and sagittal reformats were performed. FINDINGS: LOWER CHEST: Redemonstration of interstitial lung disease with bronchiectasis, subpleural opacities, and honeycombing. Pectus excavatum. Mildly enlarged heart. ABDOMEN LIVER: Unremarkable GALLBLADDER AND BILE DUCTS: The gallbladder is surgically absent. No biliary ductal dilatation. PANCREAS: Unremarkable. SPLEEN: Unremarkable. ADRENAL GLANDS: Unremarkable. KIDNEYS AND URETERS: No evidence of hydronephrosis or renal calculus. The kidneys enhance symmetrical ly. Contrast is demonstrated within both collecting systems and proximal ureters on the delayed phase . STOMACH AND BOWEL: Small hiatal hernia, duodenum is unremarkable. . Contrast reaches the distal small bowel. No bowel wall thickening or surrounding inflammatory changes identified. No evidence of bowel obstruction. PERITONEUM: No evidence of pneumoperitoneum or free fluid. VASCULATURE: Mild to moderate atherosclerotic calcifications are present throughout the abdominal aor ta and its branches. No evidence of aortic aneurysm. MUSCULOSKELETAL: No acute osseous abnormalities. Grade 1 anterolisthesis of L4 on L5 and L5 on S1. LYMPH NODES: No evidence for lymphadenopathy. SOFT TISSUE/ABDOMINAL WALL: Unremarkable IMPRESSION: 1. No CT evidence for acute abdominal process. 2. Redemonstration of interstitial lung disease with pulmonary fibrosis. [facility], , 11/16/2024 12:32 PM
--- NOTE | 2024-11-16 14:14 | P.PN ---
Subjective Progress Note Date: 11/16/24 This is a pleasant 79-year-old female patient with a known history of pulmonary fibrosis for approximately 1 year. She follows with Dr. Coe in our office. She is a lifelong non-smoker. She is not on home oxygen. She had presented here to the emergency room with a 3-day history of increasing shortness of breath, cough and congestion. She has had symptoms for several months but had progressively become worse and she is even short of breath at rest. Dust x-ray shows diffuse increased lung markings in the left lung. Cannot rule out underlying atypical pneumonia or pulmonary edema. White count 8.8. Hemoglobin 13.5. Platelets 268. Sodium 138. Potassium 4.3. Bicarb 22. BUN 11. Creatinine 0.6. Glucose 153. Procalcitonin is negative at 0.05. Viral screen is negative. proBNP 703. She is seen today in consultation in the emergency department. She is currently sitting up on a stretcher. Awake and alert in no acute distress. She is maintaining good O2 saturations up to 100% on 2 L/min per nasal cannula. She is afebrile. Hemodynamically stable. She is dyspneic with conversation. Dyspneic with minimal exertion. The patient is seen today November 16, 2024 in follow-up on the regular medical floor. She is currently resting comfortably in bed. Awake and alert in no acute distress. She is maintaining good O2 saturations in the 90s on 2 L/min per nasal cannula. She has been afebrile. Hemodynamically stable. No new labs today. Her procalcitonin was negative at 0.05. She remains on DuoNeb inhalations, Solu-Medrol. Empiric antibiotics. Objective - Vital Signs Vital signs: Vital Signs Temp 97.9 F 11/16/24 08:25 Pulse 88 11/16/24 13:26 Resp 18 11/16/24 10:00 BP 174/77 11/16/24 08:25 Pulse Ox 99 11/16/24 08:25 FiO2 Intake & Output 11/15/24 11/16/24 11/16/24 18:59 06:59 18:59 Weight 52.163 kg 52.163 kg Other: # Voids 1 4 # Bowel Movements 1 1 - Exam GENERAL EXAM: Alert, 79-year-old female, on 3 L nasal cannula, comfortable in no apparent distress. HEAD: Normocephalic. EYES: Normal reaction of pupils, equal size. NOSE: Clear with pink turbinates. THROAT: No erythema or exudates. NECK: No masses, no JVD. CHEST: No chest wall deformity. LUNGS: Equal air entry with coarse crackles in the bilateral bases left greater than right. CVS: S1 and S2 normal with no audible murmur, regular rhythm. ABDOMEN: No hepatosplenomegaly, normal bowel sounds, no guarding or rigidity. SPINE: No scoliosis or deformity SKIN: No rashes CENTRAL NERVOUS SYSTEM: No focal deficits, tone is normal in all 4 extremities. EXTREMITIES: There is no peripheral edema. No clubbing, no cyanosis. Peripheral pulses are intact. - Labs CBC & Chem 7: 11/15/24 06:35 11/15/24 06:35 Assessment and Plan Assessment: Acute hypoxemic respiratory failure secondary to possible worsening pulmonary fibrosis versus atypical pneumonia. Procalcitonin 0.05. Viral screen negative History of pulmonary fibrosis for approximately 1 year. Not on treatment in the outpatient setting Lifelong non-smoker Hyperlipidemia Plan: The patient was seen and evaluated Medications reviewed Continue empiric antibiotics Continue Solu-Medrol Continue DuoNeb inhalations Lovenox for DVT prophylaxis Pepcid for GI prophylaxis Titrate the FiO2 as tolerated We will continue to follow I have personally seen and examined the patient, performed the documentation and the assessment and plan as written. Number of minutes spent on the visit: 10 Dictation was produced using [employer] dictation software. Please excuse any grammatical, word or spelling errors.
--- NOTE | 2024-11-17 13:10 | P.PN ---
Subjective Progress Note Date: 11/17/24 This is a pleasant 79-year-old female patient with a known history of pulmonary fibrosis for approximately 1 year. She follows with Dr. Coe in our office. She is a lifelong non-smoker. She is not on home oxygen. She had presented here to the emergency room with a 3-day history of increasing shortness of breath, cough and congestion. She has had symptoms for several months but had progressively become worse and she is even short of breath at rest. Dust x-ray shows diffuse increased lung markings in the left lung. Cannot rule out underlying atypical pneumonia or pulmonary edema. White count 8.8. Hemoglobin 13.5. Platelets 268. Sodium 138. Potassium 4.3. Bicarb 22. BUN 11. Creatinine 0.6. Glucose 153. Procalcitonin is negative at 0.05. Viral screen is negative. proBNP 703. She is seen today in consultation in the emergency department. She is currently sitting up on a stretcher. Awake and alert in no acute distress. She is maintaining good O2 saturations up to 100% on 2 L/min per nasal cannula. She is afebrile. Hemodynamically stable. She is dyspneic with conversation. Dyspneic with minimal exertion. The patient is seen today November 16, 2024 in follow-up on the regular medical floor. She is currently resting comfortably in bed. Awake and alert in no acute distress. She is maintaining good O2 saturations in the 90s on 2 L/min per nasal cannula. She has been afebrile. Hemodynamically stable. No new labs today. Her procalcitonin was negative at 0.05. She remains on DuoNeb inhalations, Solu-Medrol. Empiric antibiotics. The patient is seen today November 17, 2024 in follow-up on the regular medical floor. She is awake and alert in no acute distress. Resting comfortably in bed. Denies any worsening shortness of breath, cough or congestion. She is maintaining good O2 saturations in the 90s on 3 L/min per nasal cannula. She remains on ceftriaxone. Continued on DuoNeb and elations, Solu-Medrol. Lovenox for DVT prophylaxis. Objective - Vital Signs Vital signs: Vital Signs Temp 97.3 F L 11/17/24 08:04 Pulse 70 11/17/24 12:44 Resp 18 11/17/24 09:19 BP 178/84 11/17/24 08:04 Pulse Ox 94 L 11/17/24 08:10 FiO2 Intake & Output 11/16/24 11/17/24 11/17/24 18:59 06:59 18:59 Intake Total 540 Balance 540 Weight 52.163 kg Intake: Oral 540 Other: # Voids 3 # Bowel Movements 4 - Exam GENERAL EXAM: Alert, pleasant 79-year-old female, on 3 L nasal cannula, comfortable in no apparent distress. HEAD: Normocephalic. EYES: Normal reaction of pupils, equal size. NOSE: Clear with pink turbinates. THROAT: No erythema or exudates. NECK: No masses, no JVD. CHEST: No chest wall deformity. LUNGS: Equal air entry with coarse crackles in the bilateral bases left greater than right. CVS: S1 and S2 normal with no audible murmur, regular rhythm. ABDOMEN: No hepatosplenomegaly, normal bowel sounds, no guarding or rigidity. SPINE: No scoliosis or deformity SKIN: No rashes CENTRAL NERVOUS SYSTEM: No focal deficits, tone is normal in all 4 extremities. EXTREMITIES: There is no peripheral edema. No clubbing, no cyanosis. Peripheral pulses are intact. - Labs CBC & Chem 7: 11/15/24 06:35 11/15/24 06:35 Assessment and Plan Assessment: Acute hypoxemic respiratory failure secondary to possible worsening pulmonary fibrosis versus atypical pneumonia. Procalcitonin 0.05. Viral screen negative History of pulmonary fibrosis for approximately 1 year. Not on treatment in the outpatient setting Lifelong non-smoker Hyperlipidemia Plan: The patient was seen and evaluated Medications reviewed Continue empiric antibiotics Continue Solu-Medrol Continue DuoNeb inhalations Lovenox for DVT prophylaxis Probable discharge in the a.m. We will continue to follow I have personally seen and examined the patient, performed the documentation and the assessment and plan as written. Number of minutes spent on the visit: 10 Dictation was produced using [employer] dictation software. Please excuse any grammatical, word or spelling errors.
[2024-11-18] MEDS ORDERED: ALBUTEROL NEBULIZED 2.5 MG/3 ML INHALATION PRN (12:29)
[2024-11-18 13:53] VITALS: BP 161/73; PULSE 73; RESP 16; TEMP 97.3
--- NOTE | 2024-11-18 14:13 | P.PN ---
Subjective Progress Note Date: 11/18/24 This is a pleasant 79-year-old female patient with a known history of pulmonary fibrosis for approximately 1 year. She follows with Dr. Coe in our office. She is a lifelong non-smoker. She is not on home oxygen. She had presented here to the emergency room with a 3-day history of increasing shortness of breath, cough and congestion. She has had symptoms for several months but had progressively become worse and she is even short of breath at rest. Dust x-ray shows diffuse increased lung markings in the left lung. Cannot rule out underlying atypical pneumonia or pulmonary edema. White count 8.8. Hemoglobin 13.5. Platelets 268. Sodium 138. Potassium 4.3. Bicarb 22. BUN 11. Creatinine 0.6. Glucose 153. Procalcitonin is negative at 0.05. Viral screen is negative. proBNP 703. She is seen today in consultation in the emergency department. She is currently sitting up on a stretcher. Awake and alert in no acute distress. She is maintaining good O2 saturations up to 100% on 2 L/min per nasal cannula. She is afebrile. Hemodynamically stable. She is dyspneic with conversation. Dyspneic with minimal exertion. The patient is seen today November 16, 2024 in follow-up on the regular medical floor. She is currently resting comfortably in bed. Awake and alert in no acute distress. She is maintaining good O2 saturations in the 90s on 2 L/min per nasal cannula. She has been afebrile. Hemodynamically stable. No new labs today. Her procalcitonin was negative at 0.05. She remains on DuoNeb inhalations, Solu-Medrol. Empiric antibiotics. The patient is seen today November 17, 2024 in follow-up on the regular medical floor. She is awake and alert in no acute distress. Resting comfortably in bed. Denies any worsening shortness of breath, cough or congestion. She is maintaining good O2 saturations in the 90s on 3 L/min per nasal cannula. She remains on ceftriaxone. Continued on DuoNeb and elations, Solu-Medrol. Lovenox for DVT prophylaxis. The patient is seen today November 18, 2024 in follow-up on the regular medical floor. She is currently up ambulating in her room. Awake and alert in no acute distress. Denies any worsening shortness of breath, cough or congestion. Maintaining good O2 saturations in the upper 90s on room air. She is afebrile. Hemodynamically stable. Continued on DuoNeb inhalations, Solu-Medrol. Lovenox for DVT prophylaxis. Procalcitonin 0.05. Antibiotics discontinued. Objective - Vital Signs Vital signs: Vital Signs Temp 97.3 F L 11/18/24 12:55 Pulse 73 11/18/24 12:55 Resp 16 11/18/24 12:55 BP 161/73 11/18/24 12:55 Pulse Ox 99 11/18/24 12:55 FiO2 Intake & Output 11/17/24 11/18/24 11/18/24 18:59 06:59 18:59 Other: Voiding Method Toilet # Voids 1 - Exam GENERAL EXAM: Alert, pleasant 79-year-old female, on room air oxygen, in no apparent distress. HEAD: Normocephalic. EYES: Normal reaction of pupils, equal size. NOSE: Clear with pink turbinates. THROAT: No erythema or exudates. NECK: No masses, no JVD. CHEST: No chest wall deformity. LUNGS: Equal air entry with coarse crackles in the bilateral bases left greater than right. CVS: S1 and S2 normal with no audible murmur, regular rhythm. ABDOMEN: No hepatosplenomegaly, normal bowel sounds, no guarding or rigidity. SPINE: No scoliosis or deformity SKIN: No rashes CENTRAL NERVOUS SYSTEM: No focal deficits, tone is normal in all 4 extremities. EXTREMITIES: There is no peripheral edema. No clubbing, no cyanosis. Peripheral pulses are intact. - Labs CBC & Chem 7: 11/15/24 06:35 11/15/24 06:35 Assessment and Plan Assessment: Acute hypoxemic respiratory failure secondary to possible worsening pulmonary fibrosis versus atypical pneumonia. Procalcitonin 0.05. Viral screen negative. Recovered and on room air History of pulmonary fibrosis for approximately 1 year. Not on treatment in the outpatient setting Lifelong non-smoker Hyperlipidemia Plan: The patient was seen and evaluated Medications reviewed Discontinue Solu-Medrol Transition to prednisone taper Continue DuoNeb inhalations Stable and on room air Cleared for discharge Follow-up with Dr. Coe in our office I have personally seen and examined the patient, performed the documentation and the assessment and plan as written. Number of minutes spent on the visit: 10 Dictation was produced using [employer] dictation software. Please excuse any gramm atical, word or spelling errors.
--- NOTE | 2024-11-18 22:05 | DS ---
DISCHARGE SUMMARY CHIEF COMPLAINT: Difficulty breathing. HISTORY OF PRESENT ILLNESS AND PHYSICAL EXAM: Details of this lady's history and physical can be found in the initial workup. LABORATORY STUDIES: While she was in the hospital, she had laboratory studies, details of which can be found in the laboratory section of her chart. COURSE IN THE HOSPITAL: After admission, she was placed on bedrest, started on intravenous fluids and seen by Pulmonology. Her underlying problem is pulmonary fibrosis. She did improve slightly while she is in the hospital and was doing well and felt that she could go home. She will go home and be set up with a nebulizer for DuoNeb. Pulmonology felt that she would not benefit from oxygen at this point. FINAL DIAGNOSES: 1. Pulmonary fibrosis. 2. Respiratory failure. OPERATIONS: None. CONSULTATION: Pulmonology. She is improved. MMODL / IJN: [id number] /
[2024-11-19] MEDS ORDERED: methylPREDNISolone 4 MG TAB TAPER PO SCH (09:00)
--- NOTE | 2024-11-25 05:53 | CDI ---
Documentation Clarification Form Date: 11/25/2024 From: Paty Toledo Admit Date: 11/14/2024 02:48:00 PM Patient Name: Lisset Gordon Visit Number: [id number] Discharge Date: 11/18/2024 04:38:00 PM ATTENTION: The Clinical Documentation Specialists (CDI) and [facility] Coding Staff appreciate your assistance in clarifying documentation. Please respond to the clarification below the line at the bottom and electronically sign. The CDI & [facility] Coding staff will review the response and follow-up if needed. Please note: Queries are made part of the Legal Health Record. If you have any questions, please contact the author of this message via ITS. Doctor/Provider: Benji Lynn Respiratory failure is documented in DCS as Final diagnosis, which may lack sufficient clinical evidence/support in the medical record. Additional clarification is requested. History/Risk Factors: Pulmonary Fibrosis Clinical Indicators: 99-100% on 2 L NC, 11/15 3L NC Day of discharge 99% RA Treatment: Pulmonary consult, O2 NC. Patient going home with nebulizer for DuoNeb. Pulmonary felt that she would not benefit for O2 at this point. Please clarify if Acute Respiratory failure is a valid diagnosis? [ ] No, acute respiratory failure is ruled out [ ] Yes, acute respiratory failure is present as evidence by (additional clinical support): [ ] Other (please specify diagnosis) [ ] Unable to determine MTDD
--- NOTE | 2024-11-25 11:02 | MISC ---
MISCELLANOUS REPORT Acute respiratory failure that was present. MMODL / IJN: [id number] /
== END 2024-11-18 16:38 | disposition home or self-care (01) | DRG 196 ==
LOC: EC 12:30 → 4SSUR 14:47 → OBSVTOIN 14:48 → 4SSUR 15:57
PROVIDERS: ADMIT Family Medicine; ATTEND Family Medicine
DX: J84.10 Pulmonary fibrosis, unspecified (principal); J96.01 Acute respiratory failure with hypoxia; E78.5 Hyperlipidemia, unspecified; Z60.2 Problems related to living alone; Z79.899 Other long term (current) drug therapy
CPT/HCPCS: 36415; 71046; 74160; 80048; 80053; 83605; 83880; 84145; 84484; 85025; 85610; 85730; 87449; 87636; 93005; 94640; 94760; 96365; 96366; 96367; 96376; 99285